=== PATIENT | female | born 2005 | race Two or more races ===

== ENCOUNTER 2024-04-26 19:04 | Emergency (ER) | payer MEDICAID, SELFPAY ==
[2024-04-26 19:04] VITALS: BMI 48.3
[2024-04-26 19:30] VITALS: BP 126/79; PULSE 119; RESP 19; TEMP 36.6; O2SAT 96
--- NOTE | 2024-04-26 19:45 | XR_ITS ---
Examination: Sacrum and coccyx 2 views Technique one AP lateral sacrum and coccyx 2 views Exam date and time: April 26, 2024 2143 hrs. Indications: Syncopal pain beginning 3 hours ago. Findings: No visualized sacrococcygeal fracture No foreign body No cortical bone destruction Symmetrical sacral foramina Impression: No sacrococcygeal fracture
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
--- NOTE | 2024-04-26 20:10 | XR_ITS ---
Examination: PA chest single view Technique: Upright PA chest single view Indications: Chest pain beginning 3 hours ago Exam date and time: April 26, 2024 2142 hrs. Findings: Normal heart size Lungs are clear. The osseous structures are intact Impression: No active disease
[2024-04-26 21:03] VITALS: BP 123/76; PULSE 116; RESP 19; TEMP 36.5; O2SAT 96
[2024-04-26 21:29] LABS: HCG Qualitative,Urine Negative
[2024-04-26 22:25] VITALS: RESP 18
== END 2024-04-26 22:26 | disposition home or self-care (01) ==
PROVIDERS: Physician Assistant; Emergency Provider Emergency Medicine
DX: S30.0XXA Contusion of lower back and pelvis, initial encounter (principal); S20.214A Contusion of middle front wall of thorax, initial encounter; V89.2XXA Person injured in unspecified motor-vehicle accident, traffic, initial encounter
CPT/HCPCS: 71045; 72220; 81025; 99283